=== PATIENT | female | born 1960 | race Caucasian/White ===

== ENCOUNTER 2022-07-05 08:06 | Day surgery (SDC) | payer OTHER, SELFPAY ==
[2022-07-05] VITALS (24 sets, daily range): BP systolic 108–147; BP diastolic 66–102; PULSE 52–97; RESP 14–18; TEMP 35.8–36.7; O2SAT 94–98; BMI 32.8
[2022-07-05] MEDS: ACETAMINOPHEN 500 MG TABLET 1000 MG PO ×3 (08:48→21:45)
[2022-07-05] MEDS: OXYCODONE (CR) 10 MG TAB.ER.12H PO (08:48)
[2022-07-05] MEDS: CELECOXIB 200 MG CAPSULE PO ×2 (08:48→21:46)
--- NOTE | 2022-07-05 09:10 | CRLHL7_ITS ---
For Patients: As a result of the Cures Act, medical imaging exams and procedure reports are released immediately into your electronic medical record. You may view this report before your referring provider. If you have questions, please contact your health care provider. Indication: Postop Technique: Two views left knee Findings/Impression: Hardware from a left total knee arthroplasty is in satisfactory position. Bone alignment is normal. No sign of acute fracture. Postop changes are within normal limits. Dictated by Hever Curry MD @ 07/05/2022 1:14:32 PM (Electronically Signed)
[2022-07-05] MEDS: LACTATED RINGERS 1000 ML 1,000 ML 100 ML IV ×2 (09:15→10:32)
[2022-07-05] MEDS: SODIUM CHLORIDE 0.9 % (FLUSH) 10 ML SYRINGE IVF (09:15)
[2022-07-05] MEDS: fentaNYL 100 MCG/2 ML inj IVP (09:40)
[2022-07-05] MEDS: MIDAZOLAM HCL 1 MG/ML inj IVP (09:40)
--- NOTE | 2022-07-05 09:43 | SUR.PREOP ---
TIME?OUT:?4840 PT/Teresa John RN/Roni Grant CRNA?VERIFICATION?OF?SURGICAL?SITE left knee,?PROCEDURE,?AND?CONSENT OBTAINED?PRIOR?TO?INVASIVE?PROCEDURE.
--- NOTE | 2022-07-05 09:58 | P.NB_ITS ---
Nerve Block Nerve Block Time Seen by Provider: 09:45 Date Seen: 07/05/22 Type of block requested by surgeon for post-operative analgesia: adductor canal Side: left Time out performed: Yes Verification of patient name: Yes Verification of date of : Yes Site marking: site marked Name of person performing procedure: olga Continuous monitoring Was continuous monitoring of O2 sat, B/P, cardiac rehab nurse, recorded every 15 minutes?: Yes Procedure Checklist: sterile prep, needles and gloves Ultrasound guided. Images saved: Yes Medications given in 5ml increments after negative aspiration: Ropivicaine %: 0.5 mL: 20 Needle gauge: 20 Decadron (mg): 10 Precedex (mcg): 25 Patient tolerated procedure well: Yes Block Charges Block Charge (with Pro Fee): Femoral Nerve Use of Ultrasound Machine for Block: Yes- US Guidance/pain block
--- NOTE | 2022-07-05 10:01 | P.NB_ITS ---
Nerve Block Nerve Block Time Seen by Provider: 09:45 Date Seen: 07/05/22 Type of block requested by surgeon for post-operative analgesia: geniculars Side: left Time out performed: Yes Verification of patient name: Yes Verification of date of : Yes Site marking: site marked Name of person performing procedure: olga Continuous monitoring Was continuous monitoring of O2 sat, B/P, monitoring manager, recorded every 15 minutes?: Yes Procedure Checklist: sterile prep, needles and gloves Ultrasound guided. Images saved: Yes Medications given in 5ml increments after negative aspiration: Ropivicaine %: 0.5 mL: 12 Needle gauge: 25 Patient tolerated procedure well: Yes Block Charges Block Charge (with Pro Fee): Genicular Nerve Block Use of Ultrasound Machine for Block: No
[2022-07-05] MEDS: TRANEXAMIC ACID 100 MG/ML INJ 1000 MG IV (10:32)
[2022-07-05] MEDS: CEFAZOLIN 2 GM in 0.9 % SODIUM CHLORIDE Mini-bag 100 ML IVPB ×2 (10:32→16:43)
--- NOTE | 2022-07-05 11:48 | PM.ORPRC ---
Procedure Note Date of procedure: 07/05/22 Procedure: PREOPERATIVE DIAGNOSIS: 1. Left knee osteoarthritis, primary, severe POSTOPERATIVE DIAGNOSIS: 1. Left knee osteoarthritis, primary, severe PROCEDURE: 1. Left total knee arthroplasty SURGEON: Eduardo Sandhu MD. AIR EXPORT OPERATIONS AGENT: Clement Carranza PA-C - Of note, a skilled assistant basketball coach was critical for this case to aid in patient positioning, tissue retraction, limb manipulation/positioning, and closure. ANESTHESIA: Spinal anesthetic EBL: 50ml IMPLANTS: DePuy J&J all cemented TKA - Attune PS femur size 5 narrow, size for tibia, 5 poly spacer, 38 mm patella TOURNIQUET: 90 min at 300 torr COMPLICATIONS: None evident INDICATIONS: The patient is a pleasant 61-year-old female who has experienced severe left knee pain and difficulty bearing weight. Workup included x-rays which revealed severe osteoarthrosis in the knee. Given the deformity, the dysfunction, and the pain, as well as the failure of nonoperative management, recommendation was made for surgery. FINDINGS: Full-thickness chondral loss diffusely throughout the medial and patellofemoral compartments. To a lesser degree lateral compartment. Subchondral cystic changes were noted on both the femur and tibia. Moderate effusion upon entering the joint. DESCRIPTION OF PROCEDURE: Following a thorough discussion of risks, benefits, and alternatives consent was obtained and the left knee was marked. The patient was brought to the operating room and placed supine on the operating table. Induction of anesthesia was undertaken. 2 g IV Ancef and 1 g tranexamic acid was administered within 1 hr of incision preoperatively. Proper time-out was performed identifying proper patient, site, procedure. The operative extremity was prepped and draped in the appropriate sterile fashion using ChloraPrep after the patient was positioned supine with all bony prominences well padded. A longitudinal, anterior, midline skin incision was made starting approximately 3cm proximal to the superior pole of the patella and advanced distal to the tibial tubercle. A median parapatellar arthrotomy was created. A medial subperiosteal sleeve was created with knife, michael elevator and curved osteotome. The retropatellar fatpad was resected and the synovium in the suprapatellar pouch excised to visualize the anterior femoral cortex. Femoral preparation was performed via an intramedullary guide. Step drill allowed access into the femoral canal. The distal cutting guide was placed with 5? of valgus and 11 mm cut on the distal femur. Femur was sized using a posterior referencing guide in 3? of external rotation. This found have a best fit with the sizing noted above. The 4 in 1 cutting block was then placed, and the distal femur shaped accordingly. The box cut was then created and the trial implant inserted to confirm appropriate fit. We turned our attention to the proximal tibia. Extramedullary guide was utilized for cutting with the goal of being 90 degree cut from the mechanical axis of the tibia in the varus/valgus plane utilizing tibial crest as the primary alignment. Initially a 1 mm resection was performed from the medial tibial plateau. Ultimately, balancing was achieved in both flexion and extension in both varus and valgus. The knee was able to achieve full extension as well comfortably. The patella was initially measured and found have a thickness of 25 mm. It was resected back to approximately 15 mm. It was sized to be a best fit with as noted above. This was drilled, trial placed. All trials were placed and found to have an excellent stability and balance. At this stage, trial implants were removed, the knee was thoroughly irrigated with normal saline, and the cement was mixed. After irrigation, the knee was thoroughly dried, and cement placed, with the real tibial and femoral implants placed along with the patella. Trial poly spacer was placed and confirmed to have excellent range of motion and full extension, and the real poly spacer opened and inserted. All extra cement was removed, and a 3 min Betadine soak performed. Finally, a final irrigation round with normal saline was performed. Closure performed with 0 PDS and #0 Stratafix for the quad tendon/retinaculum. 2-0 Vicryl/Stratafix for the subcutaneous and 4-0 Monocryl for subcuticular closure. Dressings were applied and the patient was awoken from anesthesia after the tourniquet deflated and transferred the PACU in stable condition. A skilled assistant basketball coach was critical for this case to aid in patient positioning, tissue retraction, bone exposure, limb manipulation/positioning, patient safety, and closure. PLAN: 1. Weight bear as tolerated operative extremity. 2. 23 hr perioperative antibiotics. 3. Ice. 4. PT/OT consults for ambulation assistance/mobility education. 5. Social work consult for discharge planning. 6. DVT prophylaxis with at SCDs, Joe Hose, and aspirin twice daily.
--- NOTE | 2022-07-05 12:45 | W.ANESCHARGE ---
Anesthesia Charges Start Date/Time Anesthesia Start Date: 07/05/22 Anesthesia Start Time: 10:18 Stop Date/Time Anesthesia Stop Date: 07/05/22 Anesthesia Stop Time: 12:42
--- NOTE | 2022-07-05 15:10 | PC.NURSE ---
End of shift: Patient A&O. Arrived to the floor around 1330. VS WNL. No pain or nausea reported. Able to move toes with weak movement. Pt reports numbness in both legs. Tolerating fluids.
[2022-07-05] MEDS: OXYCODONE 5 MG TABLET PO ×2 (15:55→23:24)
--- NOTE | 2022-07-05 16:03 | PM.IMHP1 ---
Hospitalist- H&P: HPI History of Present Illness Time Seen by Provider: 15:40 Date Seen: 07/05/22 Chief complaint: 07/05/22, Left Total Knee, Phoebe Narrative: Erick Resendez is a 61 year old female who underwent an elective left total knee arthroplasty for osteoarthritis today. She is doing well postoperatively. She is just now starting to feel some pain, monitor left knee after surgery. Review of Systems Status of ROS: Reports: 6 or more systems reviewed and unremarkable except as noted in History and below [facility] Medical History (Updated 07/05/22 @ 15:51 by Shanna Tom MD) Adenomatous colon polyp ?D12.6 - Benign neoplasm of colon, unspecified (ICD-10) Allergic rhinitis ?J30.9 - Allergic rhinitis, unspecified (ICD-10) Asthma ?J45.909 - Unspecified asthma, uncomplicated (ICD-10) Chronic diarrhea ?K52.9 - Noninfective gastroenteritis and colitis, unspecified (ICD-10) Hyperlipidemia ?E78.5 - Hyperlipidemia, unspecified (ICD-10) Pap smear for cervical cancer screening ?Z12.4 - Encounter for screening for malignant neoplasm of cervix (ICD-10) Pes anserinus tendinitis ?M76.899 - Other specified enthesopathies of unspecified lower limb, excluding foot (ICD-10) Plantar fasciitis, right ?M72.2 - Plantar fascial fibromatosis (ICD-10) Varicose veins of both lower extremities ?I83.93 - Asymptomatic varicose veins of bilateral lower extremities (ICD-10) Vitamin D deficiency ?E55.9 - Vitamin D deficiency, unspecified (ICD-10) Surgical History (Updated 07/05/22 @ 16:08 by Shanna Tom MD) H/O colonoscopy ?Z98.890 - Other specified postprocedural states (ICD-10) H/O dilation and curettage (01/10/19) ?Z98.890 - Other specified postprocedural states (ICD-10) Previous section ?Z98.891 - History of uterine scar from previous surgery (ICD-10) S/P total knee arthroplasty (07/05/22) ?Z96.659 - Presence of unspecified artificial knee joint (ICD-10) Family History Father Heart disease High blood pressure Cancer Mother High blood pressure Paternal Grandfather Heart disease Social History (Updated 07/05/22 @ 15:58 by Shanna Tom MD) Narrative: Lives independently with her who is planning on helping her out after surgery at home. She works in the [employer] in [facility]. She is a never smoker and does not drink alcohol or use recreational drugs. Smoking Status: Never smoker Do you use any of these nicotine containing products: None Second hand tobacco smoke exposure: No How often do you have a drink containing alcohol: never How often do you have six or more drinks on one occasion: Never AUDIT-C Alcohol total score: 0 Non-prescribed substance use: denies use Caffeine: Yes (tea, 1 glass/day) service: No Meds Home Medications and Allergies Home Medications Medication Instructions Recorded Confirmed Type albuterol sulfate 90 mcg/actuation 2 inh inhalation Q4H PRN 06/03/22 07/01/22 History aerosol inhaler atorvastatin 20 mg tablet 20 mg PO HS 06/03/22 07/05/22 History montelukast 10 mg tablet 10 mg PO HS 06/03/22 07/05/22 History aspirin 81 mg tablet,delayed 81 mg PO DAILY 07/01/22 07/05/22 History release (Adult Low Dose Aspirin) cetirizine 10 mg tablet (All Day 10 mg PO DAILY 07/01/22 07/05/22 History Allergy (cetirizine)) meloxicam 15 mg tablet 15 mg PO DAILY PRN pain 07/01/22 07/01/22 History Allergies Allergy/AdvReac Type Severity Reaction Status Date / Time No Known Drug Allergies Allergy Verified 07/05/22 08:21 Exam Narrative: Exam Narrative: General: No acute distress. Awake alert oriented x3. HEENT: Normocephalic atraumatic, pupils pinpoint. Oropharynx clear. Mucous membranes are moist. No cervical lymphadenopathy, thyromegaly or carotid bruits. No JVD. Cardiovascular: Regular rate and rhythm. No murmurs, gallops, or rubs. Chest: No increased work of breathing. Clear to auscultation bilaterally. No crackles or wheezes. Abdomen: Bowel sounds present. Soft, nondistended, nontender. No hepatosplenomegaly or masses. Extremities: Left knee bandage is clean, dry, and intact. Const: Vital Signs, click to edit/add: Vital Signs - 24 hr 07/05/22 09:15 07/05/22 09:35 07/05/22 09:40 Temperature 98.1 F Pulse Rate 60 55 L 55 L Pulse Rate [Pulse Oximeter] Respiratory Rate 16 16 16 Blood Pressure 131/78 121/82 108/74 Blood Pressure [Ri ght Arm] Pulse Oximetry 96 98 96 Oxygen Delivery Me thod Room Air Nasal Cannula Nasal Cannula Oxygen Flow Rate 2 2 07/05/22 09:45 07/05/22 12:37 07/05/22 12:42 Temperature 97.1 F L Pulse Rate 52 L 77 71 Pulse Rate [Pulse Oximeter] Respiratory Rate 16 16 16 Blood Pressure 118/76 115/75 117/77 Blood Pressure [Ri ght Arm] Pulse Oximetry 95 94 94 Oxygen Delivery Me thod Nasal Cannula Room Air Room Air Oxygen Flow Rate 2 07/05/22 12:47 07/05/22 12:52 07/05/22 12:57 Temperature Pulse Rate 71 69 63 Pulse Rate [Pulse Oximeter] Respiratory Rate 16 16 16 Blood Pressure 115/80 126/76 122/71 Blood Pressure [Ri ght Arm] Pulse Oximetry 94 94 95 Oxygen Delivery Me thod Room Air Room Air Room Air Oxygen Flow Rate 07/05/22 13:02 07/05/22 13:07 07/05/22 13:12 Temperature 97.1 F L Pulse Rate 71 60 71 Pulse Rate [Pulse Oximeter] Respiratory Rate 16 16 16 Blood Pressure 116/89 124/74 119/66 Blood Pressure [Ri ght Arm] Pulse Oximetry 95 95 95 Oxygen Delivery Me thod Room Air Room Air Room Air Oxygen Flow Rate 07/05/22 14:23 07/05/22 13:45 07/05/22 14:00 Temperature 96.4 F L 96.7 F L Pulse Rate 59 L Pulse Rate [Pulse Oximeter] 67 60 Respiratory Rate 14 14 14 Blood Pressure Blood Pressure [Ri ght Arm] 123/78 130/70 136/81 Pulse Oximetry 96 Oxygen Delivery Me thod Room Air Room Air Room Air Oxygen Flow Rate 07/05/22 14:15 07/05/22 14:30 07/05/22 15:00 Temperature 96.6 F L 97.1 F L Pulse Rate Pulse Rate [Pulse Oximeter] 67 73 70 Respiratory Rate 14 14 Blood Pressure Blood Pressure [Ri ght Arm] 124/83 134/82 127/81 Pulse Oximetry 97 96 98 Oxygen Delivery Me thod Room Air Room Air Room Air Oxygen Flow Rate 07/05/22 15:00 07/05/22 15:00 Temperature Pulse Rate Pulse Rate [Pulse Oximeter] 72 Respiratory Rate 18 Blood Pressure Blood Pressure [Ri ght Arm] Pulse Oximetry 95 Oxygen Delivery Me thod Oxygen Flow Rate Hospitalist - H&P: Result Labs Labs: Ordering Physician: Eduardo Sandhu M.D. Date of Service: 07/05/22 Procedure(s): XR knee LT 2V Accession Number(s): [id number] cc: Eduardo Sandhu M.D.; Josy Charles M.D.~ For Patients: As a result of the Cures Act, medical imaging exams and procedure reports are released immediately into your electronic medical record. You may view this report before your referring provider. If you have questions, please contact your health care provider. Indication: Postop Technique: Two views left knee Findings/Impression: Hardware from a left total knee arthroplasty is in satisfactory position. Bone alignment is normal. No sign of acute fracture. Postop changes are within normal limits. Dictated by Hever Curry MD @ 07/05/2022 1:14:32 PM (Electronically Signed) Assessment and Plan Assessment and plan (1) S/P total knee arthroplasty: Problem comment: Jagdeep Status: Acute (2) Hyperlipidemia: Status: Chronic (3) Asthma: Problem comment: Best peak flow is 450 Status: Chronic Plan 61-year-old female who underwent an elective left total knee arthroplasty today by Dr. Gannon. She is doing well postoperatively. Continue her usual home medications. Asthma is well controlled and I do not think this will be an issue during this hospitalization.
[2022-07-05] MEDS: MONTELUKAST 10 MG TABLET PO (21:46)
[2022-07-05] MEDS: SENNOSIDES 1 TAB TABLET 2 TAB PO (21:46)
[2022-07-05] MEDS: ASPIRIN 81 MG TABLET EC PO (21:46)
[2022-07-05] MEDS: ATORVASTATIN 10 MG TABLET 20 MG PO (21:46)
--- NOTE | 2022-07-05 23:46 | PC.NURSE ---
Nursing Care Hours: [id number] Pt this shift calm and cooperative, alert and oriented. Pain rated 4-5/10, treated per eMAR, decreased to 2/10. Up to chair with 2 assist, small incontinent episode when standing. Socks and briefs changed. Up to bathroom with 1 assist and eventually SB assist using walker and gait belt. Tolerating regular diet. SL. VSS. Dressing CDI, CMS intact, pedal pulses present.
[2022-07-06] MEDS: CEFAZOLIN 2 GM in 0.9 % SODIUM CHLORIDE Mini-bag 100 ML IVPB (01:04)
[2022-07-06] MEDS: ACETAMINOPHEN 500 MG TABLET 1000 MG PO (02:01)
[2022-07-06 02:10] VITALS: BP 115/71; PULSE 62; RESP 14; TEMP 36.9; O2SAT 94
[2022-07-06 06:44] LABS: Basophils Percent Auto 0.1 % (0.0-3.0); Hemoglobin* 14.3 gm/dL (12.0-16.0); Immature Granulocytes Pct Auto 0.3 %; Lymphocytes Percent Auto 8.7 % (20-44); Mean Corpuscular HGB Conc 35 gm/dL (32-36); Mean Corpuscular Hemoglobin 29 pg (26-34); Mean Corpuscular Volume 84 fL (80-100); Monocytes Percent Auto 5.5 % (0.0-11.0); Neutrophils Percent Auto 85.4 % (42.0-72.0); Platelet Count* 290 K/uL (140-440); RDW Coefficient of Variation % 13.2 % (11.5-15.5); Red Blood Count 4.86 m/uL (4.00-5.20); White Blood Count* 13.09 K/uL (4.50-11.00)
[2022-07-06 06:45] LABS: Slide Review Reflex No
[2022-07-06 06:57] LABS: Potassium* 4.3 mmol/L (3.6-5.1); Sodium* 137 mmol/L (135-149)
[2022-07-06 07:00] LABS: Blood Urea Nitrogen* 14 mg/dL (7-30); Creatinine* 0.7 mg/dL (0.5-1.5); Est. Creatinine Clearance* 46.73; Estimated Glomerular Filt Rate 98 ml/min
--- NOTE | 2022-07-06 07:05 | PC.NURSE ---
Pt alert and oriented x3. Afebrile. Pt reports pain 4/10 in left knee, pain managed with PRN oxycodone and scheduled Tylenol. Pt's left knee dressing is CDI. Pt denies chest pain, SOB, and N/V. Pt is voiding, tolerating a regular diet, up SBA with walker and gait belt. Pt slept intermittently throughout night. ??
[2022-07-06 07:30] VITALS: O2SAT 96
[2022-07-06] MEDS: OXYCODONE 5 MG TABLET PO (07:35)
[2022-07-06 07:44] VITALS: BP 123/69; PULSE 65; RESP 14; TEMP 36.4; O2SAT 96
[2022-07-06] MEDS: SENNOSIDES 1 TAB TABLET 2 TAB PO (08:35)
[2022-07-06] MEDS: CELECOXIB 200 MG CAPSULE PO (08:35)
[2022-07-06] MEDS: CETIRIZINE HCL 10 MG TABLET PO (08:36)
[2022-07-06] MEDS: ASPIRIN 81 MG TABLET EC PO (08:37)
--- NOTE | 2022-07-06 11:21 | PC.SOCIAL ---
Per therapy pt is ambulating well and has assistance at home after hospital discharge. There are no identified needs from social work.
--- NOTE | 2022-07-06 12:41 | PC.NURSE ---
D/c: Patient A&O. VS WNL. Reported pain 0-3/10. PRN pain medications given prior to therapy. SBA w/ walker and gait belt. IV removed with tip intact. Verbal d/c instructions proved to pt and spouse. Written instructions sent with pt. All questions answered. D/c to home at 1050.
--- NOTE | 2022-07-06 17:21 | PM.ORPN ---
Subjective Subjective Date Seen: 07/06/22 Principal diagnosis: Status postop day 1 left total knee arthroplasty Interval history: Patient reports doing well. No acute events over night. Pain managed with scheduled /PRN medications and ice. DVT prophylaxis 81 mg aspirin by mouth twice daily, bilateral knee high Joe stockings, and SCDs. Denies fevers, chills, aches, N/V, CP, SOB/WRIGHT, tachycardia, or lightheadedness. Not passing gas. Ortho Exam Narrative Exam Narrative: -Patient appears comfortable; no apparent acute distress -Alert and oriented times 3 -Operative knee mildly swollen; soft tissues supple; no ecchymosis; no erythematous streaking Warmth appropriate -Surgical dressing clean, dry, intact; no drainage -Bilateral calfs soft; no significant swelling, edema, tenderness, erythema, discoloration, warmth, or palpable cords -2+ DP/PT pulses, intact dermatomes and myotomes distally (5/5 strength) Const Vital Signs, click to edit/add: Vital Signs - 24 hr 07/05/22 18:00 07/05/22 19:00 07/05/22 23:00 Temperature Pulse Rate [Pulse Oximeter] 90 86 Respiratory Rate 18 18 Blood Pressure [Right Arm] 131/88 123/83 Pulse Oximetry 95 95 94 Oxygen Delivery Method Room Air Room Air 07/05/22 23:00 07/05/22 23:00 07/06/22 02:10 Temperature 97.8 F 98.4 F Pulse Rate [Pulse Oximeter] 97 97 62 Respiratory Rate 16 16 14 Blood Pressure [Right Arm] 123/83 115/71 Pulse Oximetry 94 94 Oxygen Delivery Method Room Air Room Air 07/06/22 07:44 07/06/22 07:30 Temperature 97.6 F Pulse Rate [Pulse Oximeter] 65 Respiratory Rate 14 Blood Pressure [Right Arm] 123/69 Pulse Oximetry 96 96 Oxygen Delivery Method Room Air Assessment and Plan Assessment and plan (1) S/P total knee arthroplasty: Problem details: POD 1 Left TKA (07/05/2022, Dr. Sandhu) Status: Acute (2) Hyperlipidemia: Status: Chronic (3) Asthma: Problem details: Best peak flow is 450 Status: Chronic Plan - Complete 23 hour perioperative antibiotics. - PT/OT consult for education and assistance. - Social work consult for discharge planning - Prescribed analgesics as needed - DVT prophylaxis: 81 mg aspirin by mouth twice daily, bilateral knee high Joe Hose stockings and SCDs - Anticipation is for discharge to home with spouse today 07/06/2022 if the patient remains medically stable, pain is controlled, and they are safe with mobilization.
--- NOTE | 2022-07-06 17:22 | PM.DS1 ---
DS: Providers Provider Date Seen: 07/06/22 Date of admission: Med/Surg Recovery 07/05/2022 Primary care physician: Josy Charles MD Consults: 07/05/22 13:27 Consult to Occupational Therapy [CONS] Routine Comment: Reason(s) for OT Consult:: ADLs Prior to Discharge Any Restrictions?:: See Comment Comment: See nursing activity order for any restrictions. Consult to Physical Therapy [CONS] Routine Comment: Ambulate in the [facility] today. Reason(s) for PT Consult:: TKA TX Protocol POD#0 Any Restrictions?:: See Comment Comment: See nursing activity order for any restrictions. Consult to Physician [CONS] Routine Comment: Consulting Provider: Hospitalists Has provider been notified: No Consult to Concrete [employer] Molder [CONS] Routine Comment: Reason for Consult:: Discharge Planning Needs Attending Physician on discharge: Eduardo Sandhu MD Date of Discharge: 07/06/22 DS: Diagnosis Discharge Diagnosis (1) S/P total knee arthroplasty: Status: Acute Problem details: Left TKA (07/05/2022, Dr. Sandhu) DS: Summary Hospital Course Hospital Course: The patient has a history of left knee osteoarthritis, primary, severe. After appropriate preoperative evaluation, the patient underwent left total knee arthroplasty. Postoperatively given anticoagulation for deep vein thrombosis prophylaxis - 81 mg aspirin by mouth twice daily. They progressed to PT/OT and were felt ready and prepared for discharge to home with appropriate pain medication and anticoagulation medications. Status at Discharge Functional status at discharge: uses cane/walker Overall status at discharge: patient is progressing back to baseline Time Spent with Patient Time attestation: Total time spent providing and/or coordinating discharge services: Time spent: Less than 30 minutes Exam Const: Vital Signs, click to edit/add: Vital Signs - 24 hr 07/05/22 18:00 07/05/22 19:00 07/05/22 23:00 Temperature Pulse Rate [Pulse Oximeter] 90 86 Respiratory Rate 18 18 Blood Pressure [Ri ght Arm] 131/88 123/83 Pulse Oximetry 95 95 94 Oxygen Delivery Me thod Room Air Room Air 07/05/22 23:00 07/05/22 23:00 07/06/22 02:10 Temperature 97.8 F 98.4 F Pulse Rate [Pulse Oximeter] 97 97 62 Respiratory Rate 16 16 14 Blood Pressure [Ri ght Arm] 123/83 115/71 Pulse Oximetry 94 94 Oxygen Delivery Me thod Room Air Room Air 07/06/22 07:44 07/06/22 07:30 Temperature 97.6 F Pulse Rate [Pulse Oximeter] 65 Respiratory Rate 14 Blood Pressure [facility] 123/69 Pulse Oximetry 96 96 Oxygen Delivery Me thod Room Air DS: Data Data Completed and Pending Labs on day of discharge: Labs from last 24 hours 07/06/22 06:03 WBC 13.09 H RBC 4.86 Hgb 14.3 Hct 41.0 MCV 84 MCH 29 MCHC 35 RDW Coeff of Yumiko 13.2 Plt Count 290 Neut % (Auto) 85.4 H Lymph % (Auto) 8.7 L [place] % (Auto) 5.5 Eos % (Auto) 0.0 Baso % (Auto) 0.1 Neut # (Auto) 11.20 H Lymph # (Auto) 1.10 [place] # (Auto) 0.70 Eos # (Auto) 0.00 Baso # (Auto) 0.00 Sodium 137 Potassium 4.3 BUN 14 Creatinine 0.7 Estimated Creat Clear 46.73 Estimated GFR 98 Discharge Plan Discharge Disposition: Home, Self-Care Discharging Surgeon: Eduardo Sandhu Follow-Up Appointment: 1 week PO with NILSON Vaughan Prescriptions: New sennosides-docusate sodium [Senna-S] 8.6-50 mg tablet 1 - 4 tab-cap PO BID PRN (Reason: constipation) Qty: 60 0RF Rx Instructions: Hold medication if experiencing loose stools. aspirin 81 mg tablet,delayed release (DR/EC) 81 mg PO BID Qty: 60 0RF Rx Instructions: Medication to help prevent blood clots postoperatively; take TWICE daily. celecoxib 100 mg capsule 100 mg PO BID Qty: 60 0RF acetaminophen 500 mg capsule 500 - 1,000 mg PO Q6H MDD 4000mg PRNQty: 100 0RF oxycodone 5 mg tablet 2.5 - 5 mg PO Q4-6H MDD 6 PRN (Reason: pain) Qty: 42 0RF Rx Instructions: Take as needed for postop pain: 2.5mg mild pain, 5mg moderate-severe pain; wean as tolerated. Continued atorvastatin 20 mg tablet 20 mg PO HS montelukast 10 mg tablet 10 mg PO HS albuterol sulfate 90 mcg/actuation HFA aerosol inhaler 2 inh inhalation Q4H PRN aspirin [Adult Low Dose Aspirin] 81 mg tablet,delayed release (DR/EC) 81 mg PO DAILY cetirizine [All Day Allergy (cetirizine)] 10 mg tablet 10 mg PO DAILY meloxicam 15 mg tablet 15 mg PO DAILY PRN (Reason: pain) Activity Level: Activity as Tolerated, Weight Bearing as Tolerated, Use Cane and Use Walker Activity Detail: Wound: ?Do not remove original dressing; we will remove this at first postop visit in 1 week. Only remove dressing if integrity is in question. ?No immersing wound in water; showering okay; light scrub with your hand and body soap, rinse, dab dry ?Sutures are under the skin, will dissolve; allow surgical glue to come off naturally; do not scrub the wound or apply ointments/lotions ?Call our office with any redness that streaks, excessive drainage from the wound, or wound gapping. Ice/Elevate: ?Ice as needed for swelling and discomfort (cryocuff or ice pack); elevate frequently above the heart DAPHNEY socks: ?Wear for 1 month, remove for 1 hour 3 times per day ?These are frustrating to take on/off, but are important for blood clot prevention for 1 month after surgery Blood Clot Prevention (DVT): ?Medication: 81 mg aspirin by mouth twice daily (1 month) Driving: ?Do not drive while taking narcotic pain medication ?Anticipate 4-6 weeks no driving if operative leg is driving leg Dental: ?No elective dental work for 6 months post-op. If there is an urgent/emergent dental need, contact our office for an antibiotic prescription. Smoking/Alcohol: ?Do not smoke; do no drink alcohol especially when taking postoperative oral narcotic medication Seek Care from you Primary Care Provider if you experience the following issues in the postoperative phase and beyond: ?Bacterial infections such as: pneumonia, bacterial skin infection (cellulitis), UTI, high fever, chills unrelated to the operative body part - call your primary care physician urgently for treatment in hopes to protect your health and the metal implant. Referrals: ?PT, OT per patient preference - evaluate treat total knee arthroplasty protocol (gait training, ROM, ADLs) Follow up: ?Ortho surgeon follow-up in 6 weeks; repeat radiographs three views operative knee ?PA-C visit in 1 week *If there are any acute concerns regarding your surgery, please call our orthopedic clinic ([phone]) Discharge Diet: Regular Patient Instructions: Acetaminophen (By mouth), Aspirin (By mouth), Oxycodone, Rapid Release (By mouth), Celecoxib (By mouth), Senna (By mouth), Surgical Site Infections (DC), Knee Replacement (DC) Forms: Work/School Release Follow-up: Josy Charles MD [Primary Care Provider] - Clement Carranza PA-C [Physician Fresh Work Wrapper Layer] - 07/15/22 10:30 am (At the [facility] Discharge Orders: Discharge Order (Routine); Ordered 07/06/22 Ordered By: Clement Carranza Consulting provider completed their portion of the discharge: Yes
== END 2022-07-06 10:50 | disposition home or self-care (01) ==
LOC: OR 08:08 → MEDSURG 08:15
PROVIDERS: PCP Family Medicine; Visit Provider Orthopaedic Surgery Sports Medicine
PROC: (CPT 27447; principal; 2022-07-05 09:45)
DX: M17.12 Unilateral primary osteoarthritis, left knee (principal); E78.5 Hyperlipidemia, unspecified; J45.909 Unspecified asthma, uncomplicated
CPT/HCPCS: 27447; 1400; 36415; 64447; 64454; 73560; 76942; 82565; 84132; 84295; 84520; 85025; 97110; 97116; 97161; 97165; 97530; 97535; A9270; C1776; J0690; J1100; J2250; J2405; J2704; J2795; J3010; J7120

== ENCOUNTER 2022-11-26 16:00 | Outpatient (RCR) | payer OTHER, SELFPAY | END 2022-11-29 10:00 | disposition home or self-care (01) | PROVIDERS: Visit Provider Orthopaedic Surgery Sports Medicine | DX: M17.12 Unilateral primary osteoarthritis, left knee (principal); Z96.652 Presence of left artificial knee joint; M25.562 Pain in left knee; M25.662 Stiffness of left knee, not elsewhere classified; Z51.89 Encounter for other specified aftercare | CPT/HCPCS: 97110; 97116; 97140; 97162; 97535 ==

== ENCOUNTER 2022-11-29 10:08 | Outpatient (CLI) | payer OTHER, SELFPAY ==
--- NOTE | 2022-11-29 08:03 | W.ANESCHARGE ---
Anesthesia Charges Start Date/Time Anesthesia Start Date: 11/29/22 Anesthesia Start Time: 11:47 Stop Date/Time Anesthesia Stop Date: 11/29/22 Anesthesia Stop Time: 12:04
--- NOTE | 2022-11-29 15:01 | W.ANESCHARGE ---
Anesthesia Charges Start Date/Time Anesthesia Start Date: 11/29/22 Anesthesia Start Time: 11:47 Stop Date/Time Anesthesia Stop Date: 11/29/22 Anesthesia Stop Time: 12:04
== END 2022-11-29 10:09 | disposition home or self-care (01) ==
LOC: OP CLINIC 10:08
PROVIDERS: PCP Family Medicine; Visit Provider Internal Medicine Gastroenterology
DX: Z12.11 Encounter for screening for malignant neoplasm of colon (principal); K57.30 Diverticulosis of large intestine without perforation or abscess without bleeding; K64.4 Residual hemorrhoidal skin tags; Z86.010 Personal history of colon polyps
CPT/HCPCS: 00811; 00812; 45378; J2704

== ENCOUNTER 2023-09-09 23:25 | Emergency (ER) | payer BC, SELFPAY ==
--- NOTE | 2023-09-09 23:40 | ED_ITS ---
HPI - General Adult General Chief complaint: Extremity Pain/Injury, Upper Stated complaint: extreme pain in L hand Time Seen by Provider: 09/09/23 23:37 History of Present Illness HPI narrative: CC: Left Hand Pain pt. with left hand pain since tuesday. feels like pins and needles. denies injury. 62-year-old woman presenting to the emergency department with concern of left hand pain. More like pins and needles and just really uncomfortable. She thinks maybe she is having carpal tunnel. Apparently was prior diagnosed and has been wearing 8 in wrist braces. Reviewing the brace is they do not look to be offloaded specifically for carpal tunnel. Her right hand though seems to be better. Couple of days ago also heads soreness into her upper chest as I inquire related to tension in her upper back. 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 Not in the best position she admits and has had a variety of pains in various locations. Denies rheumatological disorders, PMR. Admits osteoarthritis and has had a left total knee I believe. Related Data Home Medications ?Medication ?Instructions ?Recorded ?Confirmed albuterol sulfate 90 mcg/actuation 2 inh inhalation Q4H PRN 06/03/22 09/09/23 aerosol inhaler atorvastatin 20 mg tablet 20 mg PO HS 06/03/22 09/09/23 montelukast 10 mg tablet 10 mg PO HS 06/03/22 09/09/23 cetirizine 10 mg tablet (All Day 10 mg PO DAILY 07/01/22 09/09/23 Allergy (cetirizine)) aspirin 81 mg tablet,delayed 81 mg PO QDAY 09/17/22 09/09/23 release (Adult Low Dose Aspirin) Previous Rx's ?Medication ?Instructions ?Recorded gabapentin 300 mg capsule 300 mg PO TID #60 caps 09/10/23 Allergies Allergy/AdvReac Type Severity Reaction Status Date / Time No Known Drug Allergies Allergy Verified 09/09/23 23:46 Review of Systems Status of ROS: Reports: 6 or more systems reviewed and unremarkable except as noted in History and below [facility] Medical History Right lower lobe pneumonia ?J18.9 - Pneumonia, unspecified organism (ICD-10) Postmenopausal bleeding ?N95.0 - Postmenopausal bleeding (ICD-10) Pneumonia ?J18.9 - Pneumonia, unspecified organism (ICD-10) Exacerbation of asthma ?J45.901 - Unspecified asthma with (acute) exacerbation (ICD-10) Pap smear for cervical cancer screening ?Z12.4 - Encounter for screening for malignant neoplasm of cervix (ICD-10) Pes anserinus tendinitis ?M76.899 - Other specified enthesopathies of unspecified lower limb, excluding foot (ICD-10) Varicose veins of both lower extremities ?I83.93 - Asymptomatic varicose veins of bilateral lower extremities (ICD-10) Plantar fasciitis, right ?M72.2 - Plantar fascial fibromatosis (ICD-10) Adenomatous colon polyp ?D12.6 - Benign neoplasm of colon, unspecified (ICD-10) Chronic diarrhea ?K52.9 - Noninfective gastroenteritis and colitis, unspecified (ICD-10) Allergic rhinitis ?J30.9 - Allergic rhinitis, unspecified (ICD-10) Vitamin D deficiency ?E55.9 - Vitamin D deficiency, unspecified (ICD-10) Asthma ?J45.909 - Unspecified asthma, uncomplicated (ICD-10) Hyperlipidemia ?E78.5 - Hyperlipidemia, unspecified (ICD-10) Surgical History Status post total left knee replacement (07/05/22) ?Z96.652 - Presence of left artificial knee joint (ICD-10) H/O colonoscopy ?Z98.890 - Other specified postprocedural states (ICD-10) Previous section ?Z98.891 - History of uterine scar from previous surgery (ICD-10) H/O dilation and curettage (01/10/19) ?Z98.890 - Other specified postprocedural states (ICD-10) Family History Father Heart disease High blood pressure Cancer Mother High blood pressure Paternal Grandfather Heart disease Social History Narrative: Lives independently with her who is planning on helping her out after surgery at home. She works in the [employer] at [employer] in [facility] [place]. She is a never smoker and does not drink alcohol or use recreational drugs. Smoking Status: Never smoker Do you use any of these nicotine containing products: None Second hand tobacco smoke exposure: No How often do you have a drink containing alcohol: never How often do you have six or more drinks on one occasion: Never AUDIT-C Alcohol total score: 0 Non-prescribed substance use: denies use Caffeine: Yes (tea, 1 glass/day) service: No Exam Narrative: Exam Narrative: Is wringing her hands and rubbing her left greater than right forearm to the elbow. Sore to palpation intense in the right greater than left trapezial musculature and into the rhomboids/periscapular musculature. She has good pulses in the upper extremities. Is well-perfused. Negative Tinel's and negative Phalen's. Does not have reproducible discomfort in the anticubital fossa Const: Vital Signs, click to edit/add: Vital Signs - 24 hr 09/09/23 23:44 09/10/23 00:01 Temperature 98.0 F 98.0 F Pulse Rate [Right Pulse Oximeter] 76 Respiratory Rate 18 Blood Pressure [Ri ght Upper Arm] 135/74 Pulse Oximetry 97 Oxygen Delivery Me thod Room Air Documenting provider has reviewed patient's vital signs: yes Course Vital Signs Vital signs: Initial Vital Signs Temperature 98.0 F 09/09/23 23:44 Temperature Source Temporal Artery Scan 09/09/23 23:44 Pulse Rate 76 09/09/23 23:44 Respiratory Rate 18 09/09/23 23:44 Blood Pressure 135/74 09/09/23 23:44 Blood Pressure Mean 94 09/09/23 23:44 Blood Pressure Position Sitting 09/09/23 23:44 Pulse Oximetry 97 09/09/23 23:44 Oxygen Delivery Method Room Air 09/09/23 23:44 Vital Signs Temperature 98.0 F 09/09/23 23:44 Pulse Rate 76 09/09/23 23:44 Respiratory Rate 18 09/09/23 23:44 Blood Pressure 135/74 09/09/23 23:44 Pulse Oximetry 97 09/09/23 23:44 Oxygen Delivery Method Room Air 09/09/23 23:44 Temperature 98.0 F 09/10/23 01:36 Pulse Rate 74 09/10/23 01:36 Respiratory Rate 18 09/10/23 01:36 Blood Pressure 125/68 09/10/23 01:36 Pulse Oximetry 98 09/10/23 01:30 Oxygen Delivery Method Room Air 09/10/23 01:30 Medications Administered Medications: Discontinued Medications Generic Name Dose Route Start Last Admin Trade Name Rafiat PRN Reason Stop Dose Admin Hydrocodone Bitart/Acetaminophen 2 tab 09/09/23 23:50 09/10/23 00:01 Hydrocodone-Acetamin 5-325 Mg 1 Tab PO 09/09/23 23:51 2 tab ONCE ONE Administration Gabapentin 300 mg 09/10/23 01:22 09/10/23 01:30 Gabapentin 300 Mg Capsule PO 09/10/23 01:23 300 mg ONCE ONE Administration Lorazepam 1 mg 09/09/23 23:50 09/10/23 00:01 Lorazepam 1 Mg Tablet PO 09/09/23 23:51 1 mg ONCE ONE Administration Medical Decision Making MDM Narrative Medical decision making narrative: I think is pretty stressed in discomfort at this point. Unclear to me really if this is being referred from the shoulder area in the muscle tension/discomfort that is present. There may be carpal tunnel present but testing here would suggest otherwise. Rather isolated for vitamin deficiency related hip esthesia is. Has no family history of personal history of other neurological disorders. I cannot isolate exactly where she may have any nerve impingement. Without trauma not convinced that x-ray imaging would be beneficial here. Would offer some pain relief here in the emergency department. Ordered for test Painter and lorazepam. Overall improved on reassessment. Discussed with neurology on-call. Certainly could be referring from distal to proximal. This would appear to be related to overuse. Discussed further options for pain management with Ms. Resendez. Perhaps gabapentin would be beneficial in shorter term management? See patient discharge plan for further discussion. Discharge Plan Discharge Clinical Impression: Neuropathy, Hypesthesia Patient Disposition: Home w/ Parent or Adult Condition: Improved Additional Instructions: See handout on exercises for the upper back/neck that I would consider doing couple of times daily perhaps over this next week. I think you can continue to wear your braces on both wrists loosely also over this next week. Trial this gabapentin over the next week. Schedule follow-up with your primary care provider for further evaluation or possible referral to Neurology if this continues. Prescriptions: New gabapentin 300 mg capsule 300 mg PO TID Qty: 60 0RF No Action atorvastatin 20 mg tablet 20 mg PO HS montelukast 10 mg tablet 10 mg PO HS albuterol sulfate 90 mcg/actuation HFA aerosol inhaler 2 inh inhalation Q4H PRN aspirin [Adult Low Dose Aspirin] 81 mg tablet,delayed release (DR/EC) 81 mg PO QDAY cetirizine [All Day Allergy (cetirizine)] 10 mg tablet 10 mg PO DAILY Follow Up/Referrals: Josy Charles MD [Primary Care Provider] - Stand Alone Forms: [employer] Info Instructions
[2023-09-09 23:44] VITALS: BP 135/74; PULSE 76; RESP 18; TEMP 36.7; O2SAT 97; BMI 31.9
[2023-09-10 00:01] VITALS: TEMP 36.7
[2023-09-10] MEDS: LORazepam 1 MG TABLET PO (00:01)
[2023-09-10] MEDS: HYDROCODONE-ACETAMIN 5-325 MG 1 TAB 2 TAB PO (00:01)
--- OUTSIDE RECORDS SUMMARY | 2023-09-10 00:03 | XMS_ITS | Clinical Summary ---
Author Organization [facility] [facility] Address [place], [place] [address] Care Team Providers Care Pantry Steward/Stewardess Name Role Phone Josy Charles MD Primary Care Provider [phone] Allergies No known active allergies Medications Medication Sig Dispensed Refills Start Date End Date Status cetirizine (ZYRTEC) 10 mg tabletIndications:A llergic rhinitis, cause unspecified Take 1 tab by mouth once daily. 30 tablet PRN 08/03/2011 Active medical supply, miscellaneous (GRADUATED COMPRESSION STOCKINGS)Indicatio ns:Varicose veins of both lower extremities with pain 20-30 mm/Hg calf high or thigh high compression stockings - Venous insufficiency 8 Packet 05/18/2018 Active Additional Information Patient taking differently: CONTINUOUS PRN, 20-30 mm/Hg calf high or thigh high compression stockings - Venous insufficiency, Reported on 10/18/2022 nystatin powder (MYCOSTATIN) powderIndications:V ulvar candidiasis Apply 1 Strip topically to affected area(s) 3 times daily. 60 g 3 09/02/2021 Active aspirin (ECOTRIN) 81 mg enteric coated tabletIndications:E levated coronary artery calcium score Take 1 Tablet (81 mg) by mouth once daily with a meal. 0 02/03/2022 Active aspirin (ECOTRIN) 81 mg enteric coated tabletIndications:E levated coronary artery calcium score Take 1 Tablet (81 mg) by mouth once daily with a meal. To prevent stroke and heart attack. 90 Tablet 3 10/18/2022 Active cetirizine (ZYRTEC) 10 mg tabletIndications:E nvironmental allergies Take 1 Tablet (10 mg) by mouth once daily. 90 Tablet 3 10/18/2022 Active atorvastatin (LIPITOR) 20 mg tabletIndications:E levated coronary artery calcium score Take 1 Tablet (20 mg) by mouth at bedtime. 90 Tablet 3 10/18/2022 Active montelukast (SINGULAIR) 10 mg tabletIndications:M ild intermittent asthma without complication Take 1 Tablet (10 mg) by mouth once daily. 90 Tablet 3 10/18/2022 Active albuterol HFA (Ventolin HFA) 90 mcg/actuation inhalerIndications: Mild intermittent asthma without complication INHALE ONE TO TWO PUFFS BY MOUTH EVERY 4 HOURS NEEDED 18 g 3 10/20/2022 Active Active Problems Problem Noted Date Diagnosed Date Prediabetes 10/20/2022 Elevated glucose 10/19/2022 Overview: GLUCOSE (mg/dL) Date Value 10/18/2022 140 (H) 04/28/2017 94 Pap smear for cervical cancer screening 09/03/19 Overview: 09/2021 NIL/HPV negative. Plan: Pap/HPV due 09/2026 Arthritis of left knee 06/26/2020 Pes anserinus tendinitis of left lower extremity 06/26/2020 Varicose veins of both lower extremities with pa in 04/13/2018 Right foot pain 04/24/2015 Left knee pain 04/24/2015 Plantar fasciitis, right 04/27/2013 Adenomatous colon polyp 12/03/2011 Overview: Colonoscopy 11/2011 polyps repeat in 5 years Colonoscopy 04/2017 polyp, repeat in 5 years Vitamin D deficiency 08/17/2011 Chronic diarrhea 06/03/2010 Unspecified asthma(493.90) Overview: action plan on file best peak flow 450 Just gets with illness and some with allergy Allergic rhinitis, cause unspecified Encounters Date Type Department Care Team Description 09/09/2023 Orders Only [facility] [address] [place] [address] Rachel Dover PA 1 scan: (1-Ord) NFLD-EKG-09/08/23 09/08/2023 7:20 AM CDT Office Visit [facility] [address] [place] [address] Rachel Dover PA Joint Pain 09/08/2023 Travel 07/13/2023 4:40 PM CDT Ancillary Procedure [facility] [address] [facility] [id number] 07/13/2023 Travel from Last 3 Months Immunizations Name Administration Dates Next Due AMB Influenza, IIV3 (Age >=3 years)(Flu Clinic Only) 12/28/2012,12/22/2011,01/20/2011 AMB Influenza, IIV4 PF (=>6 mos Flulaval,Fluzone Fluarix)(Flu Clinic Only) 01/13/2018 COVID-19 vaccine (Scrip-t-Bio NTech 30mcg/0.3mL) 12YO+ VLAD-SUCROSE PF, MDV 09/14/2021 COVID-19 vaccine (Scrip-t-Bio NTech 30mcg/0.3mL) PF, MDV 05/15/2020,04/24/2020 HepA-HepB (Twinrix) 07/06/2016 Influenza A (H1N1), Inactiva lorene (Age >=3 Years) 02/06/2009 Influenza Virus, Unspecified 01/17/2016 Influenza, IIV3 (Age 6-35 mos) 01/20/2011 Influenza, IIV3 (Age >=3 years) 12/29/19 13,12/22/2011,01/01/2010,2008,02/27/2007,01/10/2006,01/18/2005,1 ,03/04/2003 Influenza, IIV4 01/02/2021, 9,01/13/2017,2014,02/06/2009 Pneumococcal Conj 20-valent (Prevnar 20) 09/17/2021 Td (Age >=7 Years) 03/18/2000 Tdap 06/03/2010 Zoster (Shingrix-RZV, recombinant) 03/12/2019, Family History Medical History Relation Name Comments No Known Problems Brother Dementia Father Heart Disease Father angina Other Father bladder cancer Hypertension Mother Heart attack Paternal Grandfather Heart attack Paternal Grandmother Diabetes Paternal Uncle No Known Problems Sister Anesthesia Malignant Hyperthermia No Family History Anesthesia Problem No Family History Cancer-breast No Family History Cancer-ovarian No Family History Clotting disorder No Family History Relation Name Status Comments Brother Alive Father Alive Mother Alive Paternal Grandfather Paternal Grandmother Paternal Uncle Sister Alive Social History Tobacco Use Types Packs/Day Years Used Date Smoking Tobacco: Never Passive Smoke Exposure: Never Smokeless Tobacco: Never Tobacco Cessation:Counseling Given: Yes Alcohol Use Standard Drinks/Week Comments No 0 (1 standard drink = 0.6 oz pur e alcohol) PHQ-2 Answer Date Recorded PHQ-2 TOTAL SCORE 0 10/18/2022 Social Connections Answer Date Recorded Frequency of Communication with Friends and Fami ly 0 06/28/2022 Financial Resource Strain Answer Date R ecorded Difficulty of Paying Living Expenses 3 06/28/2022 Difficulty of Paying Living Expenses Not on file 06/28/2022 Food Insecurity Answer Date Recorded Worried About Running Out of Food in the Last Ye ar 1 06/28/2022 Transportation Needs Answer Date Record ed Lack of Transportation (Medical) 1 06/28/2022 Housing Stability Answer Date Recorded Unable to Pay for Housing in the Last Year 1 06/28/2022 Sex and Gender Information Value Date Recorded Sex Assigned at Not on file Gender Identity Not on file Sexual Orientation Not on file Obstetrics History Para Term AB IAB SAB Ectopic Multiple Livin g Live Births 2 2 2 Date Outcome GA Total Labor Labor/2nd/3rd Weight Sex Delivery Anes PTL Marisel A1 A5 Name Cl in Para Para Last Filed Vital Signs Vital Sign Reading Time Taken Comments Blood Pressure 144/85 09/08/2023 7:20 AM CDT Pulse 72 09/08/2023 7:20 AM CDT Temperature 36.6 ??C (97.9 ??F) 09/08/2023 7:20 AM CD T Respiratory Rate 16 10/18/2022 1:31 PM CDT Oxygen Saturation 94% 09/08/2023 7:20 AM CDT Inhaled Oxygen Concentration - - Weight 85.8 kg (189 lb 1.6 oz) 09/08/2023 7:20 A M CDT Height 157.5 cm (5' 2.01) 10/18/2022 1:31 PM CD T Body Mass Index 34.58 10/18/2022 1:31 PM CDT Plan of Treatment Upcoming Encounters Date Type Department Care Team (Late st Contact Info) Description 09/14/2023 2:45 PM CDT [facility] [address] [facility] [address] Josy Charles MD [address] [place] [address] Health Maintenance Due Date Last Done Comments HIV for age 15-65 12/27/1975 Tetanus booster 06/03/2020 06/03/2010, 03/18/2000 BMI (ht and wt on same day) for age 18+ 10/19/2023 10/18/2022, 02/03/2022, 09/02/2021, Additional history exists Depression screening for age 12+ 10/21/2023 10/20/2022, 10/19/2022, 10/19/2022, Additional history exists Influenza for age 50-64 12/04/2023 01/03/20 21, 12/28/2018, 01/13/2018, Additional history exists Mammogram for age 45-75 07/12/2024 07/13/19 24, 05/31/2022, 05/28/2021, Additional history exists Pap test for age 21-65 09/02/2026 , 09/02/2021, 02/05/2016, Additional history exists Lipids for age 45-75 10/19/2027 10/18/2022, 09/02/2021, 04/28/2017, Additional history exists Colonoscopy through age 75 12/01/202711/30, 11/29/2022, 04/29/2017, Additional history exists Tdap Completed 06/03/2010 Zoster (shingles) series for age 50+ Completed 03/12/2019, 12/28/2018 Hepatitis C screening for age 18-79 Completed 09/02/2021 Pneumococcal series for age 6-64 Aged Out 09/17/2021 No longer eligible based on patient's age to complete this topic COVID-19 vaccine series Completed 01/13/20 23, 03/17/2022, 09/14/2021, Additional history exists Procedures Procedure Name Priority Date/Time Associated Diagnosis Comments EKG 12 LEAD Routine 09/09/2023 3:00 PM CDT Myalgia [place] READING EKG - NO CHARGE, COMP ONLY Routine 09/09/2023 2:59 PM CDT Myalgia RED CELL MORPHOLOGY Routine 09/08/2023 8 :19 AM CDT Myalgia PLATELET ESTIMATE Routine 09/08/2023 8:1 9 AM CDT Myalgia MANUAL DIFFERENTIAL Routine 09/08/2023 8 :19 AM CDT Myalgia CBC WITH AUTO DIFFERENTIAL Routine 09/08/2023 8:19 AM CDT Myalgia LYME SCREEN W/REFLEX Routine 09/08/2023 8:19 AM CDT Myalgia CK TOTAL Routine 09/08/2023 8:19 AM CDT Myalgia C-REACTIVE PROTEIN STAT 09/08/2023 8: 19 AM CDT Myalgia SEDIMENTATION RATE STAT 09/08/2023 8: 19 AM CDT Myalgia BASIC METABOLIC PANEL STAT 09/08/2023 8:19 AM CDT Myalgia CBC WITH AUTO DIFFERENTIAL Routine 09/08/2023 8:19 AM CDT Myalgia XR MAMMO CYNDY BILAT SCREEN Routine 07/13/2023 4:55 PM CDT Visit for screening mammogram COLONOSCOPY SCREENING Routine 11/30/2022 12:00 AM CDT History of colon polyps LIPID PANEL W REFLEX MEASURED LDL Routine 10/18/2022 1:53 PM CDT Elevated coronary artery calcium score ANTI HCV Routine 09/02/2021 5:21 PM CDT Need for hepatitis C screening test HPV THIN PREP Routine 09/02/2021 4:34 PM CDT Pap smear for cervical cancer screening from Last 3 Months or Most Recently Relevant to Health Maintenance Results * EKG 12 LEAD (09/09/2023 3:00 PM CDT) Rachel CALDERON EKG ORD * [place] READING EKG - NO CHARGE, COMP ONLY (09/09/2023 2:59 PM CDT) Rachel CALDERON PB - PROVIDER READINGS * SEDIMENTATION RATE (09/08/2023 8:19 AM CDT) Pathologist [facility] SEDIMENTATION RATE 6 <30 mm/hr 2023 2:40 PM CDT [facility] Blood BLOOD SPECIMEN / Unknown Venipuncture / Unknown 09/08/2023 8:19 AM CDT 09/08/2023 8:19 AM CDT Rachel CALDERON HEMATOLOGY [facility] [address] [place] [phone], * (ABNORMAL) CBC WITH AUTO DIFFERENTIAL (09/08/2023 8:19 AM CDT) [facility] WHITE BLOOD COUNT 6.3 4.5 - 11.0 thou/cu mm 09/08/2023 8:53 AM CDT [facility] RED BLOOD COUNT 4.69 4.00 - 5.20 mil/cu mm 09/08/2023 8:53 AM CDT [facility] HEMOGLOBIN 14.0 12.0 - 16.0 g/dL 09/08/2023 8:53 AM CDT [facility] HEMATOCRIT 38.8 33.0 - 51.0 % 09/08/2023 8:53 AM CDT [facility] MCV 83 80 - 100 fL 09/08/2023 8:53 AM CDT [facility] MCH 29.9 26.0 - 34.0 pg 09/08/2023 8:53 AM CDT [facility] MCHC 36.1(H) 32.0 - 36.0 g/dL 09/08/2023 8:53 AM CDT [facility] RDW 13.4 11.5 - 15.5 % 09/08/2023 8:53 AM CDT [facility] PLATELET COUNT 354 140 - 440 thou/cu mm 09/08/2023 8:53 AM CDT [facility] MPV 9.3 6.5 - 11.0 fL 09/08/2023 8:53 AM CDT [facility] Blood BLOOD SPECIMEN / Unknown Venipuncture / Unknown 09/08/2023 8:19 AM CDT 09/08/2023 8:19 AM CDT Rachel CALDERON HEMATOLOGY Performing Organization Address City/[facility]/ZIP Co de Phone Number [facility] [address] [place] [address], * RED CELL MORPHOLOGY (09/08/2023 8:19 AM CDT) RBC COMMENT RBC morphology appears normal RBC morphology appears normal, RBC morphology within normal limits for newborns. 09/08/2023 8:53 AM CDT [facility] Blood BLOOD SPECIMEN / Unknown Venipuncture / Unknown 09/08/2023 8:19 AM CDT 09/08/2023 8:19 AM CDT Rachel CALDERON HEMATOLOGY [facility] [address] [place] [address], [place] [phone] * PLATELET ESTIMATE (09/08/2023 8:19 AM CDT) PLATELET ESTIMATE Adequate Adequate, No estimate 09/08/2023 8:53 AM CDT [facility] Blood BLOOD SPECIMEN / Unknown Venipuncture / Unknown 09/08/2023 8:19 AM CDT 09/08/2023 8:19 AM CDT Rachel CALDERON HEMATOLOGY [facility] [address] [place] [address], * MANUAL DIFFERENTIAL (09/08/2023 8:19 AM CDT) % NEUTROPHILS 75.0 % 09/08/2023 8:53 AM CDT [facility] % LYMPHOCYTES 22.0 % 09/08/2023 8:53 AM CDT [facility] % MONOCYTES 3.0 % 09/08/2023 8:53 AM CDT [facility] % EOSINOPHILS 0.0 % 09/08/2023 8:53 AM CDT [facility] % BASOPHILS 0.0 % 09/08/2023 8:53 AM CDT [facility] NEUTROPHILS ABSOLUTE 4.7 1.7 - 7.0 thou/cu mm 09/08/2023 8:53 AM CDT [facility] LYMPHOCYTES ABSOLUTE 1.4 0.9 - 2.9 thou/cu mm 09/08/2023 8:53 AM CDT [facility] MONOCYTES ABSOLUTE 0.2 <0.9 thou/cu mm 09/08/2023 8:53 AM CDT [facility] EOSINOPHILS ABSOLUTE 0.0 <0.5 thou/cu mm 09/08/2023 8:53 AM CDT [facility] BASOPHILS ABSOLUTE 0.0 <0.3 thou/cu mm 09/08/2023 8:53 AM CDT [facility] ABS NRBC 0.1 thou /cu mm 09/08/2023 8:53 AM CDT [facility] MANUAL NRBC PER 100 CELLS 1.0 /100 CELLS 09/08/2023 8:53 AM CDT [facility] Blood BLOOD SPECIMEN / Unknown Venipuncture / Unknown 09/08/2023 8:19 AM CDT 09/08/2023 8:19 AM CDT Rachel CALDERON HEMATOLOGY [facility] [address] [place] [phone], * LYME SCREEN W/REFLEX (09/08/2023 8:19 AM CDT) Pathologist [facility] LYME SCREEN W/REFLEX Negative Negative 09/09/2023 10:55 AM CDT [facility] Comment: No laboratory evidence of infection with B. burgdorferi (Lyme disease). Negative results may occur in patients recently infected (less than or equal to 14 days) with B. burgdorferi. If recent infection is suspected, repeat testing on a new sample collected in 7-14 days is recommended. Blood BLOOD SPECIMEN / Unknown Venipuncture / Unknown 09/08/2023 8:19 AM CDT 09/08/2023 8:19 AM CDT Rachel CALDERON SEND OUTS Performing Organization Address City/[facility]/ZIP Co de Phone Number [facility] [address] [place] [address], * (ABNORMAL) C-REACTIVE PROTEIN (09/08/2023 8:19 AM CDT) [facility] C-REACTIVE PROTEIN 3.4(H) <0.5 mg/dL 09/08/2023 6:44 PM CDT [facility] Blood BLOOD SPECIMEN / Unknown Venipuncture / Unknown 09/08/2023 8:19 AM CDT 09/08/2023 8:19 AM CDT Rachel CALDERON CHEMISTRY [facility] [address] [place] [id number], [place] * CK TOTAL (09/08/2023 8:19 AM CDT) Pathologist [facility] CK,TOTAL 103 26 - 192 IU/L 09/08/2023 6:32 PM CDT [facility] Blood BLOOD SPECIMEN / Unknown Venipuncture / Unknown 09/08/2023 8:19 AM CDT 09/08/2023 8:19 AM CDT Rachel CALDERON [facility]MISTRY [facility] [address] [place] [address], * (ABNORMAL) BASIC METABOLIC PANEL (09/08/2023 8:19 AM CDT) SODIUM 142 136 - 145 mmol/L 09/08/2023 6:46 PM CDT [facility] POTASSIUM 4.1 3.5 - 5.1 mmol/L 09/08/2023 6:46 PM CDT [facility] CHLORIDE 108(H) 98 - 107 mmol/L 09/08/2023 6:46 PM CDT [facility] CO2,TOTAL 22 22 - 29 mmol/L 09/08/2023 6:46 PM CDT [facility] ANION GAP 12 5 - 18 09/08/2023 6:46 PM CDT [facility] GLUCOSE 175(H) 70 - 99 mg/dL 09/08/2023 6:46 PM CDT [facility] CALCIUM 8.7(L) 8.8 - 10.2 mg/dL 09/08/2023 6:46 PM CDT [facility] BUN 11 8 - 23 mg/dL 09/08/2023 6:46 PM CDT [facility] CREATININE 0.79 0.50 - 0.90 mg/dL 09/08/2023 6:46 PM CDT [facility] BUN/CREAT RATIO 14 10 - 20 6:46 PM CDT [facility] eGFR 85(L) >90 mL/min/1.7 3m2 09/08/2023 6:46 PM CDT [facility] Comment:As of 2021, eG FR is calculated by the CKD-EPI creatinine equation without race adjustment. ??eGFR can be influenced by muscle mass, exercise, and diet. ??The reported eGFR is an estimation only and is only applicable if the renal function is stable. Blood BLOOD SPECIMEN / Unknown Venipuncture / Unknown 09/08/2023 8:19 AM CDT 09/08/2023 8:19 AM CDT Rachel CALDERON CHEMISTRY [facility] [address] [place] [address], * XR MAMMO CYNDY BILAT SCREEN (07/13/2023 4:55 PM CDT) Anatomical Region Laterality Modality BREASTS, Breast Left, Breast Right Bilateral Mammography Impressions 07/14/2023 4:30 PM CDT ??There is no radiographic evidence for malignancy. ??Recommend annual mammograms. MAMMOGRAM ASSESSMENT: ??ACR 1 Negative PATIENTS: You will also receive a letter with your examination results in an easy to read format. ??If you have questions about your results, please contact your referring provider. Narrative 07/14/2023 4:30 PM CDT For Patients: As a result of the Century Cures Act, medical imaging exams and procedure reports are released immediately into your electronic medical record. You may view this report before your referring provider. If you have questions, please contact your health care provider. XR MAMMO CYNDY BILAT SCREEN [[id number]] CLINICAL HISTORY: ??This is an asymptomatic 62 y.o. patient. INDICATION FOR EXAM: Mammogram Screening. TECHNIQUE: CC & MLO views were obtained. ??This study was evaluated with the assistance of Computer-Aided Detection. Breast Tomosynthesis was used in interpretation. COMPARISON FILM: Yes 05/31/22 [employer] 05/28/21 [facility] FINDINGS: ??The breasts have scattered areas of fibroglandular density. There are no dominant masses, suspicious micro calcifications or areas of architectural distortion. Josy Charles MD MAMMO * COLONOSCOPY SCREENING (11/30/2022 12:00 AM CDT) Josy Charles MD GI PROCEDURE ORD * (ABNORMAL) LIPID PANEL W REFLEX MEASURED LDL (10/18/2022 1:53 PM CDT) CHOLESTEROL,TOTAL 127 100 - 199 mg/dL 10/19/2022 2:55 AM CDT [facility] Comment: Cholesterol, Total Reference Ranges Desirable <200 mg/dL Borderline 200-239 mg/dL High >=240 mg/dL TRIGLYCERIDES 220(H) <150 mg/dL 10/19/2022 2:55 AM CDT [facility] HDL CHOLESTEROL 41 >40 mg/dL 2:55 AM CDT [facility] NON-HDL CHOLESTEROL 86 <145 mg/dl 10/19/2022 2:55 AM CDT [facility] CHOL/HDL RATIO 3.10 <4.50 10/19/2022 2:55 AM CDT [facility] LDL CHOLESTEROL 42 <=130 mg/dL 10/19/2022 2:55 AM CDT [facility] VLDL CHOLESTEROL 44(H) <=30 mg/dL 10/19/2022 2:55 AM CDT [facility] PROVIDER ORDERED STATUS RANDOM 10/19/2022 2:55 AM CDT [facility] Blood BLOOD SPECIMEN / Unknown Venipuncture / Unknown 10/18/2022 1:53 PM CDT 10/18/2022 1:53 PM CDT Dev Prince MD CHEMISTRY [facility] [address] [place] [address], * ANTI HCV (09/02/2021 5:21 PM CDT) HEPATITIS C ANTIBODY Non-React tavares Non-React tavares 09/03/2021 2:45 PM CDT [facility] Comment:Antibodies to HCV no t detected; does not exclude the possibility of exposure to HCV. Blood BLOOD SPECIMEN / Unknown Venipuncture / Unknown 09/02/2021 5:21 PM CDT 09/02/2021 5:22 PM CDT Heather CALDERON SEND OUTS [facility] [address] [place] [address], * HPV HIGH RISK (09/02/2021 4:34 PM CDT) TYPE 16 Negative Negative 09/07/2021 1:50 PM CDT [facility] TYPE 18 Negative Negative 09/07/2021 1:50 PM CDT [facility] OTHER HIGH RISK TYPES Negative Negative 09/07/2021 1:50 PM CDT [facility] Other (Cervical) Non-Blood / Unknown 09/02/2021 4:34 PM CDT 09/03/2021 4:43 PM CDT Narrative [facility] - 09/07/2021 1:50 PM CDT HPV types 16, 18, 31, 33, 35, 39, 45, 51, 52, 56, 58, 59, 66 and 68 DNA were undetectable or below the pre-set threshold. Methodology: Karen Suraj 4800 HPV Test Heather CALDERON MICROBIOLOGY Performing Organization Address City/[facility]/ZIP Co de Phone Number [facility] [address] [place] [phone], [place] from Last 3 Months or Most Recently Relevant to Health Maintenance Care Teams Pantry Steward/Stewardess Relationship Specialty Start Date End Date Josy Charles MD [address] [place] [address] PCP - General Family Practice 11/24/22
[2023-09-10 01:12] VITALS: O2SAT 98
[2023-09-10 01:30] VITALS: BP 125/68; PULSE 74; RESP 18; TEMP 36.7; O2SAT 98
[2023-09-10] MEDS: GABAPENTIN 300 MG CAPSULE PO (01:30)
[2023-09-10 01:36] VITALS: BP 125/68; PULSE 74; RESP 18; TEMP 36.7
== END 2023-09-10 01:37 | disposition home or self-care (01) ==
PROVIDERS: Emergency Provider Family Medicine; PCP Family Medicine
DX: G62.9 Polyneuropathy, unspecified (principal); R20.1 Hypoesthesia of skin
CPT/HCPCS: 94761; 99283; 99284; A9270